=== PATIENT | female | born 1985 | race Caucasian/White ===

== ENCOUNTER 2017-10-09 16:07 | Observation (INO) ==
--- NOTE | 2017-10-09 17:11 | ED ---
History of Present Illness Primary Care Physician: Ayaz Desai Chief Complaint: Elevated BP History of Present Illness: Patient is a 32 yo at 35 weeks and 6 days . EDC is 11/07/2017. care with Dr Rosales. Pt was sent over from office where she had gone for routine visit. BP was noted to be elevated 140/102 and pt was sent for evaluation. Pt had preclampsia with last , and postdelivery BP remained elevated and pt was on Nifedipine. Nifedipine was switched to Labetalol 100mg po daily with this . Pt denies any headache, vision changes or RUQ pain. She reports active movements. No abdominal pain or contractions. No vaginal bleeding or leaking. Pt had prior c section for pre-eclampsia/placental abruption. She has repeat C section/BTL scheduled for 8 Weeks Gestation:: 35 Para: 1 : 2 Review of Systems All other systems reviewed negative except as stated in HPI PMFSH - History History Provided By: Patient - Tobacco History Second Hand Smoke Exposure: No Tobacco Use In Past 30 Days: No Smoking Status: Never smoker Medications and Allergies Allergies Allergy/AdvReac Type Severity Reaction Status Date / Time Sulfa (Sulfonamide Allergy Severe Hives Verified 10/09/17 17:39 Antibiotics) Home Medications Medication Instructions Recorded Confirmed Type PreNata 1 tab/day PO DAILY 10/09/17 10/09/17 History aspirin [Aspirin Low Dose] 81 mg PO DAILY 10/09/17 10/09/17 History iron 1 PO DAILY 10/09/17 History labetalol 100 mg PO DAILY 10/09/17 10/09/17 History Exam Vital signs: Vital Signs 10/09/17 16:30 10/09/17 16:36 Temperature 98.2 F Pulse Rate 121 H 115 H Respiratory Rate 18 Blood Pressure 147/113 H 145/116 H Intake & Output 10/08/17 10/09/17 10/09/17 18:59 06:59 18:59 Weight 66.224 kg Narrative: FHR Cat 1 TOCO: no contractions - Constitutional no acute distress - Routine Neck Exam Present: supple - Routine Cardiovascular Exam Present: RRR - Routine Abdominal Exam Present: soft (size appropriate for gestatational age) - Routine Extremities Exam Present: edema - Detailed Neurological Exam Cranial nerves: Normal CN II, Normal CN III, Normal CN IV, Normal CN V, Normal CN , Normal CN VII, Normal CN VIII, Normal CN IX, Normal CN X, Normal CN XI, Normal CN XII DTR: 0: patellar (R) (no ankle clonus) Results - Labs CBC & Chem 7: 10/09/17 16:55 10/09/17 16:55 Assessment and Plan - Diagnosis (1) 35 weeks gestation of Code(s): Z3A.35 - 35 weeks gestation of Status: Acute (2) Hypertension affecting in third trimester Code(s): O16.3 - Unspecified maternal hypertension, third trimester Status: Acute Plan: PIH labs wnl, except for urine protein/creatinine ratio 0.17. BP remains elevated but improved with PO Nidedipine. D/w Dr Mari, ajbier. Plan is to admit for observation. Increase Labetalol to 200mg Q 12 hourly Will start 24 hour urine protein collection Repeat PIH labs in AM. Discharge Plan - Discharge Disposition Patient Disposition: 30 Still Patient - Discharge Condition Condition: Good - Physicians Team ED Provider: Vernon Ward Primary Care Provider: Ayaz Desai - Rxs /Orders / Referrals /Forms Prescriptions: No Action aspirin [Aspirin Low Dose] 81 mg Tablet,Delayed Release (Dr/Ec) 81 mg PO DAILY iron 1 PO DAILY labetalol 100 mg PO DAILY PreNata 1 tab/day PO DAILY - Discharge Instructions Print Language: Nauruan
[2017-10-09 17:17] LABS: Hematocrit 34.1 % (35.0-46.0); Hemoglobin 11.3 gm/dL (11.6-15.3); Mean Corpuscular HGB Conc 33.1 % (32.0-36.0); Mean Corpuscular Hemoglobin 30.2 pg (27.0-34.0); Mean Corpuscular Volume 91.4 fL (80.0-100.0); Mean Platelet Volume 8.2 fL (7.0-11.0); Platelet Count 336 th/mm3 (150-450); Red Blood Count 3.73 mil/mm3 (4.00-5.30); Red Cell Distribution Width 13.6 % (11.6-17.2); White Blood Count 16.7 th/mm3 (4.0-11.0)
[2017-10-09] MEDS: Betamethasone Sod Phos/Acetate Inj 30 MG/5 ML Vial IM SCH (17:40)
[2017-10-09 17:46] LABS: Anion Gap 10 meq/L (5-15); Blood Urea Nitrogen 7 mg/dL (7-18); Calcium 8.3 mg/dL (8.5-10.1); Carbon Dioxide 22.7 meq/L (21.0-32.0); Chloride 108 meq/L (98-107); Glomerular Filtration Rate Greater Than 89 mL/min (>89); Glucose,Random 71 mg/dL (74-106); Potassium 3.4 meq/L (3.5-5.1); Sodium 141 meq/L (136-145); Uric Acid 3.1 mg/dl (2.6-6.0)
[2017-10-09 18:32] LABS: Protein/Creatinine Ratio,Urine 0.17 (0.00-0.14)
[2017-10-09 18:33] LABS: Bilirubin,Urine Negative (Negative); Clarity,Urine Clear (Clear); Color,Urine Yellow (Yellw/Straw); Glucose,Urine (UA) Negative (Negative); Leukocyte Esterase,Urine Negative (Negative); Nitrite,Urine Negative (Negative); Specific Gravity,Urine 1.014 (1.002-1.035); Squamous Epithelial Cell,Urine 1 /hpf (0-5)
[2017-10-09] MEDS ORDERED: NIFEdipine 10 MG Capsule PO ONE (18:48)
[2017-10-09 18:52] LABS: Alanine Aminotransferase 22 U/L (10-53); Aspartate Aminotransferase 25 U/L (15-37)
[2017-10-09] MEDS ORDERED: Acetaminophen 325 MG Tablet PO PRN (20:23)
[2017-10-09] MEDS: Labetalol 200 MG Tablet PO SCH (21:06)
--- NOTE | 2017-10-10 07:31 | P.HPOB ---
History of Present Illness Primary Care Physician: Ayaz Desai Chief Complaint: Elevated BP History of Present Illness: 32 yo mwf at 36 weeks sent in yesterday for elevated BP, pedal edema, 1+ proteinuria and headache. She is a patient of our practice but I only met her yesterday. She had an emergent section with her 3 year old at 38 weeks for placental abruption due to sudden pre eclampsia and is scheduled for a repeat section with BTL at 39 weeks. surveillance including today has been reassuring. AGA with good CHANDRAKANT and 8/8 BPP. No leaking, bleeding, contractions. One hour glucola had been elevated but 3 hour normal. On arrival last evening to [facility] here pressures were quite up, but with meds have resovled. She has received steroids x 1. She is sleeping quietly with no concerns on mmonitor. Weeks Gestation:: 36 Para: 1 : 2 Review of Systems All other systems reviewed negative except as stated in HPI PMFSH - History History Provided By: Patient - Tobacco History Second Hand Smoke Exposure: No Tobacco Use In Past 30 Days: No Smoking Status: Never smoker - Travel History Recent Travel in the [place] Within the Last 8 Weeks: No Recent Travel Out of the Country Within the Last 8 Weeks: No Medications and Allergies Active Medications: Active Medications Acetaminophen (Tylenol) 650 mg PO Q4H PRN PRN Reason: PAIN SCALE 1 TO 5 Aspirin (Ecotrin) 81 mg PO DAILY [facility] Betamethasone Acet/Betameth SodPhos (Celestone Soluspan Inj) 12 mg IM Q24H [facility] Stop: 10/10/17 17:01 Last Admin: 10/09/17 17:40 Dose: 12 mg Labetalol HCl (Trandate) 200 mg PO BID [facility] Last Admin: 10/09/17 21:06 Dose: 200 mg Non-Formulary Medication (Prenata) 1 tab/day PO DAILY [facility] Ondansetron HCl (Zofran Odt) 4 mg PO Q6H PRN PRN Reason: NAUSEA OR VOMITING Vit/Calcium/Iron/Folic Ac (Stuartnatal Plus 3) 1 tab PO DAILY [facility] Sodium Chloride (Ns Flush) 2 ml IV.FLUSH BID [facility] Last Admin: 10/09/17 21:05 Dose: 2 ml Sodium Chloride (Ns Flush) 2 ml IV.FLUSH PRN PRN PRN Reason: FLUSH AFTER USING IV ACCESS Allergies Allergy/AdvReac Type Severity Reaction Status Date / Time Sulfa (Sulfonamide Allergy Severe Hives Verified 10/09/17 17:39 Antibiotics) Home Medications Medication Instructions Recorded Confirmed Type PreNata 1 tab/day PO DAILY 10/09/17 10/09/17 History aspirin [Aspirin Low Dose] 81 mg PO DAILY 10/09/17 10/09/17 History iron 1 PO DAILY 10/09/17 History labetalol 100 mg PO DAILY 10/09/17 10/09/17 History Exam Vital signs: Vital Signs 10/09/17 16:30 10/09/17 16:36 10/09/17 17:09 Temperature 98.2 F Pulse Rate 121 H 115 H 106 H Respiratory Rate 18 Blood Pressure 147/113 H 145/116 H 136/93 H 10/09/17 17:46 10/09/17 18:33 10/09/17 19:38 Temperature Pulse Rate 110 H 107 H 109 H Respiratory Rate 10 L Blood Pressure 139/100 H 143/103 H 130/94 H 10/09/17 20:00 10/09/17 20:45 10/09/17 21:49 Temperature 97.7 F Pulse Rate 103 H 105 H Respiratory Rate 16 16 Blood Pressure 148/92 H 130/86 10/09/17 22:00 10/09/17 22:56 10/09/17 23:00 Temperature Pulse Rate 99 H 98 H Respiratory Rate 16 Blood Pressure 123/83 109/69 10/10/17 00:00 10/10/17 00:06 10/10/17 01:00 Temperature 98.2 F 98.2 F Pulse Rate 86 87 Respiratory Rate 18 18 Blood Pressure 122/64 102/64 10/10/17 02:00 10/10/17 03:44 10/10/17 03:46 Temperature 97.6 F Pulse Rate 82 74 Respiratory Rate 18 Blood Pressure 100/64 113/64 Intake & Output 10/09/17 10/10/17 10/10/17 18:59 06:59 18:59 Weight 66.224 kg - Constitutional no acute distress - Routine HEENT Exam Head: Present: normocephalic Eye: Present: PERRL - Routine Respiratory Exam Present: CTA bilaterally - Routine Cardiovascular Exam Present: RRR - Routine Extremities Exam Present: edema - Routine Skin Exam Present: intact - Additional findings Additional findings: cervix long closed posteror 3+ reflexes 2+ edema EFW 4 1/2 pounds Results - Labs CBC & Chem 7: 10/09/17 16:55 10/09/17 16:55 Labs: Laboratory Results - last 24 hr 10/09/17 10/09/17 10/09/17 16:55 16:55 16:55 WBC 16.7 H RBC 3.73 L Hgb 11.3 L Hct 34.1 L MCV 91.4 MCH 30.2 MCHC 33.1 RDW 13.6 Plt Count 336 MPV 8.2 Sodium 141 Potassium 3.4 L Chloride 108 H Carbon Dioxide 22.7 Anion Gap 10 BUN 7 Creatinine 0.53 Estimated GFR Greater than 89 Random Glucose 71 L Uric Acid 3.1 Calcium 8.3 L AST 25 ALT 22 Urine Color Urine Clarity Urine pH Ur Specific [place] Urine Protein Urine Glucose (UA) Urine Ketones Urine Occult Blood Urine Nitrate Urine Bilirubin Urine Urobilinogen Ur Leukocyte Esterase Urine WBC Ur Squamous Epith Cells Micro UA Comment Urine Culture Comments Ur Random Creatinine U Random Total Protein Protein/Creatinin Ratio 10/09/17 10/09/17 18:00 18:00 WBC RBC Hgb Hct MCV MCH MCHC RDW Plt Count MPV Sodium Potassium Chloride Carbon Dioxide Anion Gap BUN Creatinine Estimated GFR Random Glucose Uric Acid Calcium AST ALT Urine Color Yellow Urine Clarity Clear Urine pH 6.0 Ur Specific [place] 1.014 Urine Protein Negative Urine Glucose (UA) Negative Urine Ketones 20 Urine Occult Blood Negative Urine Nitrate Negative Urine Bilirubin Negative Urine Urobilinogen Less than 2 Ur Leukocyte Esterase Negative Urine WBC Less than 1 Ur Squamous Epith Cells 1 Micro UA Comment Culture not ind Urine Culture Comments Culture not ind Ur Random Creatinine 83 U Random Total Protein 14.0 H Protein/Creatinin Ratio 0.17 H Caprini VTE Risk Assessment Caprini VTE Risk Assessment: No/Low Risk (score <= 1) Caprini Risk Assessment Model: Point Value = 1 Point Value = 2 Point Value = 3 Point Value = 5 Age 41-60 Minor surgery BMI > 25 kg/m2 Swollen legs Varicose veins or History of unexplained or recurrent spontaneous Oral contraceptives or hormone replacement Sepsis (< 1 month) Serious lung disease, including pneumonia (< 1 month) Abnormal pulmonary function Acute myocardial infarction Congestive heart failure (< 1 month) History of inflammatory bowel disease Medical patient at bed rest Age 61-74 Arthroscopic surgery Major open surgery (> 45 min) Laparoscopic surgery (> 45 min) Malignancy Confined to bed (> 72 hours) Immobilizing plaster cast Central venous access Age >= 75 History of VTE Family history of VTE Factor V Leiden Prothrombin [id number] Lupus anticoagulant Anticardiolipin antibodies Elevated serum homocysteine Heparin-induced thrombocytopenia Other congenital or acquired thrombophilia Stroke (< 1 month) Elective arthroplasty Hip, pelvis, or leg fracture Acute spinal cord injury (< 1 month) Prophylaxis Regimen: Total Risk Factor Score Risk Level Prophylaxis Regimen 0-1 Low Early ambulation 2 Moderate Order ONE of the following: *Sequential Compression Device (SCD) *Heparin 5000 units SQ BID 3-4 Higher Order ONE of the following medications: *Heparin 5000 units SQ TID *Enoxaparin/Lovenox 40 mg SQ daily (WT < 150 kg, CrCl > 30 mL/min) *Enoxaparin/Lovenox 30 mg SQ daily (WT < 150 kg, CrCl > 10-29 mL/min) *Enoxaparin/Lovenox 30 mg SQ BID (WT < 150 kg, CrCl > 30 mL/min) AND/OR *Sequential Compression Device (SCD) 5 or more Highest Order ONE of the following medications: *Heparin 5000 units SQ TID (Preferred with Epidurals) *Enoxaparin/Lovenox 40 mg SQ daily (WT < 150 kg, CrCl > 30 mL/min) *Enoxaparin/Lovenox 30 mg SQ daily (WT < 150 kg, CrCl > 10-29 mL/min) *Enoxaparin/Lovenox 30 mg SQ BID (WT < 150 kg, CrCl > 30 mL/min) AND *Sequential Compression Device (SCD) Assessment and Plan - Plan Have weigh in today with history of abruption I am comfortable moving section up to this week
--- NOTE | 2017-10-10 08:31 | P.OBANTE ---
Subjective - Diagnosis (1) Hypertension affecting in third trimester Diagnosis: Principal (2) 35 weeks gestation of Diagnosis: Principal Interval History: no complaints, denies headache, vision changes, RUQ pain, nausea/vomiting, or edema; feeling well, endorses good FM Antepartum ROS: Reports: movement normal Denies: New complaints, Loss of fluid, Vaginal bleeding, Contractions Objective Vital Signs and I&O: Vital Signs 10/09/17 16:30 10/09/17 16:36 10/09/17 17:09 Temperature 98.2 F Pulse Rate 121 H 115 H 106 H Respiratory Rate 18 Blood Pressure 147/113 H 145/116 H 136/93 H 10/09/17 17:46 10/09/17 18:33 10/09/17 19:38 Temperature Pulse Rate 110 H 107 H 109 H Respiratory Rate 10 L Blood Pressure 139/100 H 143/103 H 130/94 H 10/09/17 20:00 10/09/17 20:45 10/09/17 21:49 Temperature 97.7 F Pulse Rate 103 H 105 H Respiratory Rate 16 16 Blood Pressure 148/92 H 130/86 10/09/17 22:00 10/09/17 22:56 10/09/17 23:00 Temperature Pulse Rate 99 H 98 H Respiratory Rate 16 Blood Pressure 123/83 109/69 10/10/17 00:00 10/10/17 00:06 10/10/17 01:00 Temperature 98.2 F 98.2 F Pulse Rate 86 87 Respiratory Rate 18 18 Blood Pressure 122/64 102/64 10/10/17 02:00 10/10/17 03:44 10/10/17 03:46 Temperature 97.6 F Pulse Rate 82 74 Respiratory Rate 18 Blood Pressure 100/64 113/64 10/10/17 07:50 Temperature 97.9 F Pulse Rate 78 Respiratory Rate 16 Blood Pressure 138/87 Intake & Output 10/09/17 10/10/17 10/10/17 18:59 06:59 18:59 Weight 66.224 kg Lab and Micro Results: Laboratory Results - last 24 hr 10/09/17 10/09/17 10/09/17 16:55 16:55 16:55 WBC 16.7 H RBC 3.73 L Hgb 11.3 L Hct 34.1 L MCV 91.4 MCH 30.2 MCHC 33.1 RDW 13.6 Plt Count 336 MPV 8.2 Sodium 141 Potassium 3.4 L Chloride 108 H Carbon Dioxide 22.7 Anion Gap 10 BUN 7 Creatinine 0.53 Estimated GFR Greater than 89 Random Glucose 71 L Uric Acid 3.1 Calcium 8.3 L AST 25 ALT 22 Urine Color Urine Clarity Urine pH Ur Specific [place] Urine Protein Urine Glucose (UA) Urine Ketones Urine Occult Blood Urine Nitrate Urine Bilirubin Urine Urobilinogen Ur Leukocyte Esterase Urine WBC Ur Squamous Epith Cells Micro UA Comment Urine Culture Comments Ur Random Creatinine U Random Total Protein Protein/Creatinin Ratio 10/09/17 10/09/17 18:00 18:00 WBC RBC Hgb Hct MCV MCH MCHC RDW Plt Count MPV Sodium Potassium Chloride Carbon Dioxide Anion Gap BUN Creatinine Estimated GFR Random Glucose Uric Acid Calcium AST ALT Urine Color Yellow Urine Clarity Clear Urine pH 6.0 Ur Specific [place] 1.014 Urine Protein Negative Urine Glucose (UA) Negative Urine Ketones 20 Urine Occult Blood Negative Urine Nitrate Negative Urine Bilirubin Negative Urine Urobilinogen Less than 2 Ur Leukocyte Esterase Negative Urine WBC Less than 1 Ur Squamous Epith Cells 1 Micro UA Comment Culture not ind Urine Culture Comments Culture not ind Ur Random Creatinine 83 U Random Total Protein 14.0 H Protein/Creatinin Ratio 0.17 H Physical Exam: GENERAL: Well-nourished, well-developed patient. CARDIOVASCULAR: Regular rate and rhythm without murmurs, gallops, or rubs. RESPIRATORY: Breath sounds equal bilaterally. No accessory muscle use. ABDOMEN/GI: Abdomen soft, non-tender. Fundus: c/w dates GENITOURINARY: External Genitalia: deferred FHT's: Category: [I] Baseline: [130s] Reactive: [y] Variability: [y] Decels: [n] EXTREMITIES: No cyanosis or edema, non-tender, without signs of DVT. Assessment and Plan - Diagnosis (1) Hypertension affecting in third trimester Code(s): O16.3 - Unspecified maternal hypertension, third trimester Status: Acute (2) 35 weeks gestation of Code(s): Z3A.35 - 35 weeks gestation of Status: Acute - Plan Per Dr. Rosales, MFM consulted today; 24h urine in progress; not meeting d/c criteria; BPs have improved on new dose of labetalol, continue Discharge Planning: not meeting criteria
[2017-10-10] MEDS: Labetalol 200 MG Tablet PO SCH (08:54)
[2017-10-10] MEDS ORDERED: Prenatal Vit/Ca/Iron/Folic Acid Tablet PO SCH (09:00)
[2017-10-10] MEDS ORDERED: [UNRECOGNIZED DRUG - OTHER] PO SCH (09:00)
[2017-10-10] MEDS ORDERED: PRENATA PO SCH (09:00)
[2017-10-10] MEDS: Betamethasone Sod Phos/Acetate Inj 30 MG/5 ML Vial IM SCH (17:18)
[2017-10-10] MEDS ORDERED: Famotidine 20 MG Tablet PO PRN (17:35)
[2017-10-10 18:24] VITALS: BP 134/80; PULSE 97; RESP 18; TEMP 98.1
--- NOTE | 2017-10-10 18:59 | P.OBANTE ---
Subjective Interval History: Quiet afternoon no headaches, nausea, vomiting no RUQT strip reactive no UCs Objective Vital Signs and I&O: Vital Signs 10/09/17 19:38 10/09/17 20:00 10/09/17 20:45 Temperature Pulse Rate 109 H 103 H Respiratory Rate 10 L 16 Blood Pressure 130/94 H 148/92 H 10/09/17 21:49 10/09/17 22:00 10/09/17 22:56 Temperature 97.7 F Pulse Rate 105 H 99 H Respiratory Rate 16 16 Blood Pressure 130/86 123/83 10/09/17 23:00 10/10/17 00:00 10/10/17 00:06 Temperature 98.2 F 98.2 F Pulse Rate 98 H 86 Respiratory Rate 18 18 Blood Pressure 109/69 122/64 10/10/17 01:00 10/10/17 02:00 10/10/17 03:44 Temperature Pulse Rate 87 82 74 Respiratory Rate 18 Blood Pressure 102/64 100/64 113/64 10/10/17 03:46 10/10/17 07:50 10/10/17 12:01 Temperature 97.6 F 97.9 F Pulse Rate 78 90 Respiratory Rate 16 16 Blood Pressure 138/87 115/78 10/10/17 12:02 10/10/17 17:16 Temperature 98.4 F 98.1 F Pulse Rate 97 H Respiratory Rate 18 Blood Pressure 134/80 Intake & Output 10/09/17 10/10/17 10/10/17 18:59 06:59 18:59 Weight 66.224 kg Physical Exam: GENERAL: Well-nourished, well-developed patient. CARDIOVASCULAR: Regular rate and rhythm without murmurs, gallops, or rubs. RESPIRATORY: Breath sounds equal bilaterally. No accessory muscle use. ABDOMEN/GI: Abdomen soft, non-tender. cervix not rechecked EXTREMITIES: No cyanosis or edema, non-tender, without signs of DVT. Assessment and Plan - Diagnosis (1) Hypertension affecting in third trimester Code(s): O16.3 - Unspecified maternal hypertension, third trimester Status: Acute (2) 36 weeks gestation of Code(s): Z3A.36 - 36 weeks gestation of Status: Acute - Plan Per Dr. Rosales, MFM consulted today; 24h urine in progress; not meeting d/c criteria; BPs have improved on new dose of labetalol, continue 10/10/17 7 pm home now that 24 hour urine complete RTO Sunday am counseled on symptoms to return for anticipate section at 37 weeks as recommended by MFM unless signs of maternal or deterioration develop home on 100 mg labatelol bid Discharge Planning: not meeting criteria
== END 2017-10-10 19:30 | disposition home or self-care (01) ==
LOC: HOBED 16:07 → H2E 16:07
PROVIDERS: ADMIT Obstetrics & Gynecology; ATTEND Obstetrics & Gynecology

== ENCOUNTER 2017-10-12 10:07 | Inpatient (IN) ==
[2017-10-12] MEDS ORDERED: Citric Acid/Sodium Citrate Liq 30 ML UDC PO SCH ×2 (10:30→10:45)
[2017-10-12] MEDS ORDERED: Naloxone Inj 0.4 MG/ML Vial IV.PUSH PRN ×2 (10:34→19:41)
[2017-10-12] MEDS ORDERED: Sodium Chlor 0.9% Inj 500 ML IV.SIG PRN (10:34)
[2017-10-12] MEDS ORDERED: fentaNYL Citrate Inj 100 MCG/2 ML Ampul IV.PUSH PRN ×2 (10:34)
[2017-10-12] MEDS ORDERED: Labetalol HCl Inj 100 MG/20 ML Vial IV.PUSH PRN ×2 (10:34→10:46)
[2017-10-12] MEDS ORDERED: Sod Chloride 0.9% Inj 1,000 ML IV.CONT PRN (10:34)
[2017-10-12] MEDS ORDERED: Oxytocin 30 Units/500ml Premix 30 UNITS/500 ML BAG IV.SIG ONE ×2 (10:34→17:05)
[2017-10-12] MEDS ORDERED: ceFAZolin 2 GM Premix Inj 2 GM/50 ML PIGGYBACK IV.SIG SCH (11:00)
[2017-10-12 11:10] LABS: Baso % (Auto) 0.2 % (0.0-2.0); Eos % (Auto) 0.2 % (0.0-4.0); Hematocrit 33.6 % (35.0-46.0); Hemoglobin 11.1 gm/dL (11.6-15.3); Lymph # (Auto) 2.9 th/mm3 (1.0-4.8); Lymph % (Auto) 20.1 % (9.0-44.0); Mean Corpuscular HGB Conc 33.2 % (32.0-36.0); Mean Corpuscular Hemoglobin 30.5 pg (27.0-34.0); Mean Platelet Volume 8.3 fL (7.0-11.0); Mono # (Auto) 1.3 th/mm3 (0.0-0.9); Mono % (Auto) 8.8 % (0.0-8.0); Neut # (Auto) 10.3 th/mm3 (1.8-7.7); Neut % (Auto) 70.7 % (16.0-70.0); Platelet Count 356 th/mm3 (150-450); Red Blood Count 3.65 mil/mm3 (4.00-5.30); Red Cell Distribution Width 14.5 % (11.6-17.2); White Blood Count 14.6 th/mm3 (4.0-11.0)
[2017-10-12 11:12] LABS: Bacteria,Urine Occasional /hpf; Bilirubin,Urine Negative (Negative); Clarity,Urine Clear (Clear); Color,Urine Straw (Yellw/Straw); Glucose,Urine (UA) Negative (Negative); Leukocyte Esterase,Urine Negative (Negative); Nitrite,Urine Negative (Negative); Specific Gravity,Urine 1.006 (1.002-1.035); Squamous Epithelial Cell,Urine 2 /hpf (0-5)
[2017-10-12 11:30] LABS: Alanine Aminotransferase 27 U/L (10-53); Albumin 2.7 g/dL (3.4-5.0); Anion Gap 7 meq/L (5-15); Aspartate Aminotransferase 21 U/L (15-37); Blood Urea Nitrogen 8 mg/dL (7-18); Calcium 8.4 mg/dL (8.5-10.1); Carbon Dioxide 23.8 meq/L (21.0-32.0); Chloride 108 meq/L (98-107); Glomerular Filtration Rate Greater Than 89 mL/min (>89); Glucose,Random 75 mg/dL (74-106); Potassium 3.6 meq/L (3.5-5.1); Sodium 139 meq/L (136-145)
[2017-10-12 11:31] LABS: Benzodiazepine Urine With Conf Neg (Neg)
[2017-10-12 11:32] LABS: Alkaline Phosphatase 157 U/L (45-117)
[2017-10-12 11:33] LABS: Amphetamine Urine With Conf Neg (Neg)
[2017-10-12] MEDS ORDERED: Glycopyrrolate Inj 1 MG/5 ML Syringe IV.PUSH ONE (12:00)
[2017-10-12] MEDS ORDERED: fentaNYL Citrate Inj 100 MCG/2 ML Ampul ONE (15:33)
[2017-10-12] MEDS ORDERED: Morphine Sulfate PF Inj 5 MG/10 ML Ampul ONE (15:33)
[2017-10-12] MEDS ORDERED: Simethicone 80 MG Chew Tablet PO PRN (17:05)
--- NOTE | 2017-10-12 17:05 | P.OBDELI ---
Procedure Note - Pre Op Diagnosis (1) Previous delivery affecting (2) History of placental abruption - Post Op Diagnosis (1) Delivered by delivery following previous delivery Performed by: Amita Rosales MD Procedure: Repeat Low Transverse Section, Other (bilateral fimbriectomy ) Indication for Delivery: Maternal medical problems, Other Informed Consent Obtained: For anesthesia, For procedure, Other (for tubal) Confirmed Correct: Patient, Procedure, Site, Time-out taken Anesthesia: Spinal Medication Prior to Procedure: As documented in eMAR Monitoring During Procedure: Blood pressure monitoring, surveillance monitor, doppler, Pulse oximetry Urinary Catheter: Inserted using sterile technique, To dependent drainage, ml urine output, Other (500 cc clear) Sterile Preparation: Duraprep, In usual fashion Position: Supine with wedge to right side - Operative Features Skin Incision: Pfannenstiel Uterine Incision: Low transverse w/knife / scissors Membranes Ruptured: Artificially Presentation: Occiput anterior Status of : Viable Placenta Delivered: Intact Medications: Antibiotics, Oxytocin Estimated blood loss (mL): 750 Procedure Tolerated: Well Maternal Condition: Stable Baby Condition: Stable - Infant Infant: Female (4 pounds 15 ounces Placenta aged and cord thin. 8 and 9 apgars )
[2017-10-12] MEDS ORDERED: Oxytocin 30 Units/500ml Premix 30 UNITS/500 ML BAG ONE (17:21)
--- NOTE | 2017-10-12 17:32 | MP ---
cc: Amita Rosales MD, Pamela P MD DATE OF OPERATION: 10/12/2017 PREOPERATIVE DIAGNOSES: A 36-week intrauterine with severe elevated blood pressures, history of prior preeclampsia with severe features and need for section for placental abruption. POSTOPERATIVE DIAGNOSES: A 36-week intrauterine with severe elevated blood pressures, history of prior preeclampsia with severe features and need for section for placental abruption. IUGR infant delivered. PROCEDURE PERFORMED: Repeat low transverse segment section and tubal ligation. ANESTHESIA: Spinal with Duramorph. SURGEON: Amita Rosales MD CONTINUOUS IMPROVEMENT ENGINEER: L and D staff. FINDINGS: Blood pressures of 160/100 were recorded in the office this morning. She appeared flushed, but otherwise was asymptomatic. She had been in the hospital this week and had received steroids and 24 hours of mag. She was not on any blood pressure medications. It was decided to bring her in for section, repeat. In the OB triage, she was 160/110. She did receive a single dose of labetalol with good control. She was walked back to the OR and underwent a repeat section to deliver an infant that was IUGR 4 pounds 15 ounces and Apgars 8 at 1 and 9 at 5, female. The distal portion of each tube was removed. Estimated blood loss was 750. Sponge, instrument, and needle counts were correct and she tolerated the procedure well. DESCRIPTION OF PROCEDURE: The patient was identified as Latesha Griffin. She was walked to the back and administered spinal with Duramorph, placed in dorsal supine position with weight off the vena cava. Sequential stockings were placed on. A Santiago catheter was placed. She was prepped and draped in the usual sterile fashion. A timeout was performed with all in attending. She has gotten 2 grams of Ancef. After assuring adequate analgesia, a Pfannenstiel incision was made with a knife and carried down through to the rectus fascia. The rectus fascia was incised and off the rectus muscle superiorly and inferiorly. The midline was entered sharply and a bladder flap was created off the lower uterine segment and then the incision was made into the intrauterine cavity and extended bluntly in a vertical fashion. The infant was delivered with the findings as noted above. The cord was clamped x2 after 45-second delay. She was handed off to the neonatology team in attending. The placenta was delivered manually intact and handed off for Mimetics. Then the uterus was exteriorized, cleaned with a lap sponge and closed with chromic in a running interlocking fashion with a second horizontal imbricating layer. The right tube was then elevated and the distal half of the tube was excised by being tied off with 0 plain x3. The left tube was treated the same way and tagged. All areas were checked for hemostasis and then the uterus was replaced into the pelvic cavity. Again, hemostasis was checked at both tubal ligation areas and at the incision. Then irrigation was performed and then the rectus muscle was approximated loosely with Vicryl. The fascia was closed with #1 Vicryl. The subcutaneous layer was closed with 3-0 plain and the skin was closed with 4-0 Vicryl on a Ubaldo needle. A pressure dressing was placed. Sponge, instrument and needle count correct. She tolerated the procedure well and went to the recovery room in stable condition. Amita Rosales MD [facility] , 05:13 PM , 05:20 PM
[2017-10-12] MEDS ORDERED: Zolpidem Tartrate 5 MG Tablet PO PRN (21:00)
[2017-10-12] MEDS: Labetalol 200 MG Tablet PO SCH (21:08)
[2017-10-12] MEDS ORDERED: Oxytocin 30 Units/500ml Premix 30 UNITS/500 ML BAG IV.SIG PRN (22:06)
[2017-10-13] MEDS: Ibuprofen 600 MG Tablet PO PRN ×3 (04:00→20:03)
[2017-10-13] MEDS: Labetalol 200 MG Tablet PO SCH ×2 (09:50→20:27)
[2017-10-13 12:50] LABS: Baso % (Auto) 0.1 % (0.0-2.0); Eos % (Auto) 0.2 % (0.0-4.0); Hematocrit 28.7 % (35.0-46.0); Hemoglobin 9.5 gm/dL (11.6-15.3); Lymph # (Auto) 2.3 th/mm3 (1.0-4.8); Mean Corpuscular HGB Conc 33.2 % (32.0-36.0); Mean Corpuscular Hemoglobin 30.3 pg (27.0-34.0); Mean Corpuscular Volume 91.3 fL (80.0-100.0); Mean Platelet Volume 8.2 fL (7.0-11.0); Mono # (Auto) 1.4 th/mm3 (0.0-0.9); Mono % (Auto) 7.2 % (0.0-8.0); Neut # (Auto) 15.4 th/mm3 (1.8-7.7); Neut % (Auto) 80.5 % (16.0-70.0); Platelet Count 292 th/mm3 (150-450); Red Blood Count 3.14 mil/mm3 (4.00-5.30); Red Cell Distribution Width 13.7 % (11.6-17.2); White Blood Count 19.2 th/mm3 (4.0-11.0)
[2017-10-13 13:18] LABS: Albumin 2.2 g/dL (3.4-5.0)
[2017-10-13 13:19] LABS: Total Protein 6.1 g/dL (6.4-8.2)
--- NOTE | 2017-10-13 14:08 | P.PNOB ---
Subjective Post op day: 1 Interval history: Doing well Baby is well Bleeding is minimal. Pain is well controlled with motrin. Objective Vital Signs/I&O: Vital Signs 10/12/17 15:13 10/12/17 16:45 10/12/17 17:00 Temperature 98.1 F Pulse Rate 77 87 81 Respiratory Rate 18 16 Blood Pressure 152/92 H 145/88 H 137/83 10/12/17 17:15 10/12/17 17:30 10/12/17 17:45 Temperature Pulse Rate 16 L 79 84 Respiratory Rate 16 16 16 Blood Pressure 145/84 H 132/81 135/81 10/12/17 18:20 10/12/17 20:00 10/12/17 23:20 Temperature 98.7 F 98.5 F Pulse Rate 76 71 67 Respiratory Rate 16 18 18 Blood Pressure 137/90 117/75 99/72 L 10/13/17 00:20 10/13/17 02:20 10/13/17 03:20 Temperature Pulse Rate Respiratory Rate 16 16 16 Blood Pressure 10/13/17 04:20 10/13/17 08:00 Temperature 98.3 F 98.0 F Pulse Rate 68 70 Respiratory Rate 18 18 Blood Pressure 110/57 L 120/82 Intake & Output 10/12/17 10/13/17 10/13/17 18:59 06:59 18:59 Intake Total 1000 / 1000 Balance 1000 / 1000 Weight 76 kg Intake: IV 1000 / 1000 LR 1000 mL Inj 1,000 ML @ 125 1000 / 1000 mls/hr IV.CONT .Q8H [facility] Rx#: [id number] Other: Weight On Admission 76 kg Result Diagrams: 10/13/17 12:20 10/12/17 10:30 Objective Remarks: GENERAL: Well-nourished, well-developed patient. CARDIOVASCULAR: Regular rate and rhythm without murmurs, gallops, or rubs. RESPIRATORY: Breath sounds equal bilaterally. No accessory muscle use. ABDOMEN/GI: Abdomen soft, non-tender, bowel sounds present. Incision: Clean, dry and intact. Fundus: Firm, non-tender at umbilicus. GENITOURINARY: Light to moderate bleeding. EXTREMITIES: No cyanosis or edema, non-tender, without signs of DVT. Medications and IVs: Active Medications Calcium Gluconate (Calcium Gluconate Inj) 1 gm IV.PUSH PRN PRN PRN Reason: Magnesium toxicity Citric Acid/Sodium Citrate (Sodium Citrate/Citric Acid Liq) 30 ml PO [employer] [facility] Stop: 10/16/17 10:44 Last Admin: 10/12/17 15:39 Dose: 30 ml Diphenhydramine HCl (Benadryl Inj) 25 mg IV.PUSH Q6H PRN PRN Reason: MILD TO MODERATE ITCHING Stop: 10/13/17 15:59 Diphenhydramine HCl (Benadryl) 50 mg PO Q6H PRN PRN Reason: MILD TO MODERATE ITCHING Stop: 10/13/17 15:59 Diphtheria/Pertussis/Tetanus Vacc (Boostrix Vaccine Inj) 0.5 ml IM .ONCE ONE Stop: 10/13/17 16:01 Fentanyl Citrate (Fentanyl Inj) 50 mcg IV.PUSH Q1H PRN PRN Reason: Pain Scale 3 - 5 Fentanyl Citrate (Fentanyl Inj) 100 mcg IV.PUSH Q1H PRN PRN Reason: PAIN SCALE 6 TO 10 Lactated Ringer's (Lr 1000 Ml Inj) 1,000 mls @ 75 mls/hr IV.CONT .[id number] [facility] Last Admin: 10/12/17 17:18 Dose: Not Given Lactated Ringer's (Lr 1000 Ml Inj) 1,000 mls @ 125 mls/hr IV.CONT .Q8H [facility] Last Admin: 10/12/17 21:10 Dose: 125 mls/hr Lactated Ringer's (Lr 1000 Ml Inj) 1,000 mls @ 3,000 mls/hr IV.SIG UNSCH PRN PRN Reason: compromise or epidural Lactated Ringer's (Lr 1000 Ml Inj) 1,000 mls @ 150 mls/hr IV.CONT .Q6H40M [facility] Last Admin: 10/12/17 17:19 Dose: Not Given Sodium Chloride (Ns Inj) 500 mls @ 1,000 mls/hr IV.SIG UNSCH PRN PRN Reason: SEE LABEL COMMENTS Sodium Chloride (Ns Inj) 1,000 mls @ 100 mls/hr IV.CONT .Q10H PRN PRN Reason: SEE LABEL COMMENTS Lactated Ringer's (Lr 1000 Ml Inj) 1,000 mls @ 100 mls/hr IV.CONT .Q10H [facility] Stop: 10/13/17 18:05 Oxytocin (Pitocin 30 Units/Ns 500 Ml Premix) 30 units in 500 mls @ 100 mls/hr IV.SIG PRN PRN PRN Reason: Heavy bleeding Stop: 10/13/17 22:05 Ibuprofen (Motrin) 600 mg PO Q6HR PRN PRN Reason: cramping Last Admin: 10/13/17 09:50 Dose: 600 mg Labetalol HCl (Trandate Inj) 20 mg IV.PUSH NOW PRN PRN Reason: SEE LABEL COMMENTS Labetalol HCl (Trandate Inj) 40 mg IV.PUSH NOW PRN PRN Reason: SEE LABEL COMMENTS Labetalol HCl (Trandate) 200 mg PO BID FITZ Last Admin: 10/13/17 09:50 Dose: 200 mg Lidocaine HCl (Xylocaine 1% Inj) 0.1 ml I-DERMAL PRN PRN PRN Reason: For IV start Stop: 10/15/17 10:33 Lidocaine HCl (Xylocaine 1% Inj) 10 ml INFILTRATN PRN PRN PRN Reason: For episiotomy repair Stop: 10/14/17 10:33 Measles/Mumps/Rubella Vaccine Live (M-M-R Ii Vaccine Inj) 0.5 ml SQ .ONCE ONE Stop: 10/13/17 16:01 Mineral Oil (Muri-Lube Oil) 10 ml TOPICAL PRN PRN PRN Reason: PRN perineal massage Miscellaneous Information ([facility]) 1 each OTHER UNSCH PRN PRN Reason: SEE LABEL COMMENTS Stop: 10/13/17 15:59 Miscellaneous Information ([facility]) 1 each OTHER UNSCH PRN PRN Reason: SEE LABEL COMMENTS Stop: 10/13/17 15:59 Naloxone HCl (Narcan Inj) 0.1 mg IV.PUSH Q2M PRN PRN Reason: for opiate reversal Naloxone HCl (Narcan Inj) 0.4 mg IV.PUSH UNSCH PRN PRN Reason: SEE LABEL COMMENTS Stop: 10/13/17 19:40 Ondansetron HCl (Zofran Odt) 4 mg PO Q6H PRN PRN Reason: NAUSEA OR VOMITING Oxycodone/Acetaminophen (Percocet 5/325 Mg) 1 tab PO Q4H PRN PRN Reason: PAIN SCALE 3 TO 5 Oxycodone/Acetaminophen (Percocet 5/325 Mg) 2 tab PO Q4H PRN PRN Reason: PAIN SCALE 6 TO 10 Senna/Docusate Sodium (Floridalma-Colace) 2 tab PO Q12H PRN PRN Reason: CONSTIPATION Simethicone (Mylicon Chew) 80 mg PO QID PRN PRN Reason: FLATULENCE Sodium Chloride (Ns Flush) 2 ml IV.FLUSH BID FITZ Sodium Chloride (Ns Flush) 2 ml IV.FLUSH PRN PRN PRN Reason: FLUSH AFTER USING IV ACCESS Zolpidem Tartrate (Ambien) 5 mg PO HS PRN PRN Reason: INSOMNIA Assessment and Plan - Plan POD #1 S/P repeat c/s Doing well Routine care.
[2017-10-13] MEDS ORDERED: Measles/Mumps/Rubella Vaccine Inj 0.5 ML Vial SQ ONE (16:00)
[2017-10-13] MEDS ORDERED: Diphtheria/Tetanus/Pertussis Vaccine Inj 0.5 ML Syringe IM ONE (16:00)
[2017-10-13] MEDS: Senna/Docusate Sodium 8.6/50 MG Tablet PO PRN (20:03)
[2017-10-14] MEDS: Ibuprofen 600 MG Tablet PO PRN ×3 (05:30→20:43)
[2017-10-14] MEDS: Labetalol 200 MG Tablet PO SCH ×2 (08:50→20:42)
[2017-10-14] MEDS: Senna/Docusate Sodium 8.6/50 MG Tablet PO PRN (14:01)
--- NOTE | 2017-10-14 14:05 | P.PNOB ---
Subjective Post op day: 2 Interval history: Doing well Pain is well controlled, trying a percocet now for first time. Bleeding is good Baby is doing well had a low temp and needs to stay tonight. Objective Vital Signs/I&O: Vital Signs 10/13/17 16:20 10/13/17 20:20 10/13/17 20:51 Temperature 97.8 F 98.6 F Pulse Rate 100 H 78 Respiratory Rate 18 18 Blood Pressure 114/88 149/96 H 138/82 10/14/17 08:20 Temperature 98.2 F Pulse Rate 84 Respiratory Rate 16 Blood Pressure 128/82 Result Diagrams: 10/13/17 12:20 10/12/17 10:30 Objective Remarks: GENERAL: Well-nourished, well-developed patient. CARDIOVASCULAR: Regular rate and rhythm without murmurs, gallops, or rubs. RESPIRATORY: Breath sounds equal bilaterally. No accessory muscle use. ABDOMEN/GI: Abdomen soft, non-tender, bowel sounds present. Incision: Clean, dry and intact. Fundus: Firm, non-tender at umbilicus. GENITOURINARY: Light to moderate bleeding. EXTREMITIES: No cyanosis or edema, non-tender, without signs of DVT. Medications and IVs: Active Medications Calcium Gluconate (Calcium Gluconate Inj) 1 gm IV.PUSH PRN PRN PRN Reason: Magnesium toxicity Citric Acid/Sodium Citrate (Sodium Citrate/Citric Acid Liq) [address] [employer] [facility] Stop: 10/16/17 10:44 Last Admin: 10/12/17 15:39 Dose: 30 ml Fentanyl Citrate (Fentanyl Inj) 50 mcg IV.PUSH Q1H PRN PRN Reason: Pain Scale 3 - 5 Fentanyl Citrate (Fentanyl Inj) 100 mcg IV.PUSH Q1H PRN PRN Reason: PAIN SCALE 6 TO 10 Lactated Ringer's (Lr 1000 Ml Inj) 1,000 mls @ 75 mls/hr IV.CONT .[id number] [facility] Last Admin: 10/12/17 17:18 Dose: Not Given Lactated Ringer's (Lr 1000 Ml Inj) 1,000 mls @ 125 mls/hr IV.CONT .Q8H [facility] Last Admin: 10/12/17 21:10 Dose: 125 mls/hr Lactated Ringer's (Lr 1000 Ml Inj) 1,000 mls @ 3,000 mls/hr IV.SIG UNSCH PRN PRN Reason: compromise or epidural Lactated Ringer's (Lr 1000 Ml Inj) 1,000 mls @ 150 mls/hr IV.CONT .Q6H40M [facility] Last Admin: 10/12/17 17:19 Dose: Not Given Sodium Chloride (Ns Inj) 500 mls @ 1,000 mls/hr IV.SIG UNSCH PRN PRN Reason: SEE LABEL COMMENTS Sodium Chloride (Ns Inj) 1,000 mls @ 100 mls/hr IV.CONT .Q10H PRN PRN Reason: SEE LABEL COMMENTS Ibuprofen (Motrin) 600 mg PO Q6HR PRN PRN Reason: cramping Last Admin: 10/14/17 13:57 Dose: 600 mg Labetalol HCl (Trandate Inj) 20 mg IV.PUSH NOW PRN PRN Reason: SEE LABEL COMMENTS Labetalol HCl (Trandate Inj) 40 mg IV.PUSH NOW PRN PRN Reason: SEE LABEL COMMENTS Labetalol HCl (Trandate) 200 mg PO BID [facility] Last Admin: 10/14/17 08:50 Dose: 200 mg Lidocaine HCl (Xylocaine 1% Inj) 0.1 ml I-DERMAL PRN PRN PRN Reason: For IV start Stop: 10/15/17 10:33 Mineral Oil (Muri-Lube Oil) 10 ml TOPICAL PRN PRN PRN Reason: PRN perineal massage Naloxone HCl (Narcan Inj) 0.1 mg IV.PUSH Q2M PRN PRN Reason: for opiate reversal Ondansetron HCl (Zofran Odt) 4 mg PO Q6H PRN PRN Reason: NAUSEA OR VOMITING Oxycodone/Acetaminophen (Percocet 5/325 Mg) 1 tab PO Q4H PRN PRN Reason: PAIN SCALE 3 TO 5 Last Admin: 10/14/17 13:57 Dose: 1 tab Oxycodone/Acetaminophen (Percocet 5/325 Mg) 2 tab PO Q4H PRN PRN Reason: PAIN SCALE 6 TO 10 Senna/Docusate Sodium (Floridalma-Colace) 2 tab PO Q12H PRN PRN Reason: CONSTIPATION Last Admin: 10/14/17 14:01 Dose: 2 tab Simethicone (Mylicon Chew) 80 mg PO QID PRN PRN Reason: FLATULENCE Sodium Chloride (Ns Flush) 2 ml IV.FLUSH BID FITZ Sodium Chloride (Ns Flush) 2 ml IV.FLUSH PRN PRN PRN Reason: FLUSH AFTER USING IV ACCESS Zolpidem Tartrate (Ambien) 5 mg PO HS PRN PRN Reason: INSOMNIA Assessment and Plan - Plan POD #2 S/P repeat c/s Doing well Routine care. Home tomorrow,,,rx written and d/c done
[2017-10-15] MEDS: Ibuprofen 600 MG Tablet PO PRN (05:38)
--- NOTE | 2017-10-15 07:47 | P.PNOB ---
Subjective Post op day: 3 Interval history: doing well, bp controlled, no LARA, no BV, no CP Objective Vital Signs/I&O: Vital Signs 10/14/17 08:20 10/14/17 19:55 Temperature 98.2 F 98.4 F Pulse Rate 84 84 Respiratory Rate 16 18 Blood Pressure 128/82 129/89 Result Diagrams: 10/13/17 12:20 10/12/17 10:30 Objective Remarks: GENERAL: Well-nourished, well-developed patient. CARDIOVASCULAR: Regular rate and rhythm without murmurs, gallops, or rubs. RESPIRATORY: Breath sounds equal bilaterally. No accessory muscle use. ABDOMEN/GI: Abdomen soft, non-tender, bowel sounds present. Incision: Clean, dry and intact. Fundus: Firm, non-tender at umbilicus. GENITOURINARY: Light to moderate bleeding. EXTREMITIES: No cyanosis or edema, non-tender, without signs of DVT. Medications and IVs: Active Medications Calcium Gluconate (Calcium Gluconate Inj) 1 gm IV.PUSH PRN PRN PRN Reason: Magnesium toxicity Citric Acid/Sodium Citrate (Sodium Citrate/Citric Acid Liq) 30 ml PO [employer] [facility] Stop: 10/16/17 10:44 Last Admin: 10/12/17 15:39 Dose: 30 ml Fentanyl Citrate (Fentanyl Inj) 50 mcg IV.PUSH Q1H PRN PRN Reason: Pain Scale 3 - 5 Fentanyl Citrate (Fentanyl Inj) 100 mcg IV.PUSH Q1H PRN PRN Reason: PAIN SCALE 6 TO 10 Lactated Ringer's (Lr 1000 Ml Inj) 1,000 mls @ 75 mls/hr IV.CONT .[id number] [facility] Last Admin: 10/12/17 17:18 Dose: Not Given Lactated Ringer's (Lr 1000 Ml Inj) 1,000 mls @ 125 mls/hr IV.CONT .Q8H [facility] Last Admin: 10/12/17 21:10 Dose: 125 mls/hr Lactated Ringer's (Lr 1000 Ml Inj) 1,000 mls @ 3,000 mls/hr IV.SIG UNSCH PRN PRN Reason: compromise or epidural Lactated Ringer's (Lr 1000 Ml Inj) 1,000 mls @ 150 mls/hr IV.CONT .Q6H40M [facility] Last Admin: 07/27/18 17:19 Dose: Not Given Sodium Chloride (Ns Inj) 500 mls @ 1,000 mls/hr IV.SIG UNSCH PRN PRN Reason: SEE LABEL COMMENTS Sodium Chloride (Ns Inj) 1,000 mls @ 100 mls/hr IV.CONT .Q10H PRN PRN Reason: SEE LABEL COMMENTS Ibuprofen (Motrin) 600 mg PO Q6HR PRN PRN Reason: cramping Last Admin: 10/15/17 05:38 Dose: 600 mg Labetalol HCl (Trandate Inj) 20 mg IV.PUSH NOW PRN PRN Reason: SEE LABEL COMMENTS Labetalol HCl (Trandate Inj) 40 mg IV.PUSH NOW PRN PRN Reason: SEE LABEL COMMENTS Labetalol HCl (Trandate) 200 mg PO BID FITZ Last Admin: 10/14/17 20:42 Dose: 200 mg Lidocaine HCl (Xylocaine 1% Inj) 0.1 ml I-DERMAL PRN PRN PRN Reason: For IV start Stop: 10/15/17 10:33 Mineral Oil (Muri-Lube Oil) 10 ml TOPICAL PRN PRN PRN Reason: PRN perineal massage Naloxone HCl (Narcan Inj) 0.1 mg IV.PUSH Q2M PRN PRN Reason: for opiate reversal Ondansetron HCl (Zofran Odt) 4 mg PO Q6H PRN PRN Reason: NAUSEA OR VOMITING Oxycodone/Acetaminophen (Percocet 5/325 Mg) 1 tab PO Q4H PRN PRN Reason: PAIN SCALE 3 TO 5 Last Admin: 10/15/17 05:38 Dose: 1 tab Oxycodone/Acetaminophen (Percocet 5/325 Mg) 2 tab PO Q4H PRN PRN Reason: PAIN SCALE 6 TO 10 Senna/Docusate Sodium (Floridalma-Colace) 2 tab PO Q12H PRN PRN Reason: CONSTIPATION Last Admin: 10/14/17 14:01 Dose: 2 tab Simethicone (Mylicon Chew) 80 mg PO QID PRN PRN Reason: FLATULENCE Sodium Chloride (Ns Flush) 2 ml IV.FLUSH BID FITZ Sodium Chloride (Ns Flush) 2 ml IV.FLUSH PRN PRN PRN Reason: FLUSH AFTER USING IV ACCESS Zolpidem Tartrate (Ambien) 5 mg PO HS PRN PRN Reason: INSOMNIA Assessment and Plan - Diagnosis (1) Hypertension affecting in third trimester Code(s): O16.3 - Unspecified maternal hypertension, third trimester Status: Acute (2) Delivered by delivery following previous delivery Status: Acute - Plan POD #3 S/P repeat c/s Doing well Routine care. Home today,,,rx written and d/c done - Attending Attestation pt seen by me
[2017-10-15] MEDS: Labetalol 200 MG Tablet PO SCH (09:18)
[2017-10-15] MEDS: Senna/Docusate Sodium 8.6/50 MG Tablet PO PRN (09:18)
== END 2017-10-15 19:42 | disposition home or self-care (01) ==
LOC: H2E 10:07 → H1EA 17:59
PROVIDERS: ADMIT Obstetrics & Gynecology; ATTEND Obstetrics & Gynecology
DX: O34.211 Maternal care for low transverse scar from previous cesarean delivery; Z79.82 Long term (current) use of aspirin; Z37.0 Single live birth; O16.4 Unspecified maternal hypertension, complicating childbirth; R51 Headache; Z3A.36 36 weeks gestation of pregnancy; O36.5990 Maternal care for other known or suspected poor fetal growth, unspecified trimester, not applicable or unspecified; O12.23 Gestational edema with proteinuria, third trimester; O26.893 Other specified pregnancy related conditions, third trimester; Z88.2 Allergy status to sulfonamides; Z30.2 Encounter for sterilization